=== PATIENT | male | born 1975 | race Two or more races ===

== ENCOUNTER 2018-03-21 11:52 | Inpatient (IN) | payer OTHER ==
[2018-03-21] MEDS ORDERED: KETOROLAC TROMETHAMINE 30 MG/1 ML VIAL IVPUSH ONE (12:46)
[2018-03-21] MEDS ORDERED: SODIUM CHLORIDE 1,000 ML IV STA ×3 (12:50→14:30)
--- NOTE | 2018-03-21 12:50 | PDOC ---
History of Present Illness <Madison Hernandes Ck - Last Filed: 03/21/18 15:01> - General History Source: Patient, Spouse - History of Present Illness Timing/Duration: reports: constant, getting worse Quality: reports: severe Abdominal Pain Onset Location: reports: RUQ Pain Radiation: reports: no radiation <Aj Rivera - Last Filed: 03/21/18 16:14> - General Chief Complaint: Pain, Acute Stated Complaint: PAIN Time Seen by Provider: 03/21/18 12:32 Past History <Madison Hernandes Ck - Last Filed: 03/21/18 15:01> - Past Medical History COPD: No Dementia: No Disorders: No - Surgical History Cholecystectomy: No GI Surgery: No - Immunization History Immunization Up to Date: No - Suicide/Smoking/Psychosocial Hx Smoking History: Current every day smoker Have you smoked in the past 12 months: No Information on smoking cessation initiated: No Hx Alcohol Use: No Drug/Substance Use Hx: No <Aj Rivera - Last Filed: 03/21/18 16:14> - Past Medical History Allergies/Adverse Reactions: Allergies Allergy/AdvReac Type Severity Reaction Status Date / Time No Known Allergies Allergy Verified 03/21/18 11:57 Home Medications: Ambulatory Orders Oxycodone HCl/Acetaminophen [Percocet 5-325 mg Tablet] 1 tab PO Q4H 03/21/18 Review of Systems - Review of Systems Constitutional: No: Chills, Fever ABD/GI: No: Constipated, Diarrhea, Nausea, Vomiting : No: Dysuria, Flank Pain, Hematuria <Aj Rivera - Last Filed: 03/21/18 16:14> *Physical Exam - Vital Signs Last Vital Signs Temp Pulse Resp BP Pulse Ox 98.5 F 104 H 18 122/88 100 03/21/18 11:54 03/21/18 11:54 03/21/18 11:54 03/21/18 11:54 03/21/18 11:54 <Madison Hernandes Ck - Last Filed: 03/21/18 15:01> - Vital Signs Last Vital Signs Temp Pulse Resp BP Pulse Ox 98.5 F 104 H 18 122/88 100 03/21/18 11:54 03/21/18 11:54 03/21/18 11:54 03/21/18 11:54 03/21/18 11:54 - Physical Exam General Appearance: Yes: Appropriately Dressed, Mild Distress HEENT: positive: Normal Voice Neck: positive: Supple Respiratory/Chest: positive: Lungs Clear, Normal Breath Sounds. negative: Respiratory Distress Cardiovascular: positive: Regular Rate, S1, S2 Gastrointestinal/Abdominal: positive: Normal Bowel Sounds, Tender (w/ guarding to RUQ), Soft. negative: Distended, Rebound Musculoskeletal: negative: CVA Tenderness Integumentary: positive: Dry, Warm Neurologic: positive: Fully Oriented, Alert, Normal Mood/Affect <Aj Rivera - Last Filed: 03/21/18 16:14> Moderate Sedation - Procedure Monitoring Vital Signs: Procedure Monitoring Vital Signs Temperature 98.5 F 03/21/18 11:54 Pulse Rate 104 H 03/21/18 11:54 Respiratory Rate 18 03/21/18 11:54 Blood Pressure 122/88 03/21/18 11:54 O2 Sat by Pulse Oximetry (%) 100 03/21/18 11:54 <Madison Hernandes - Last Filed: 03/21/18 15:01> - Procedure Monitoring Vital Signs: Procedure Monitoring Vital Signs Temperature 98.5 F 03/21/18 11:54 Pulse Rate 104 H 03/21/18 11:54 Respiratory Rate 18 03/21/18 11:54 Blood Pressure 122/88 03/21/18 11:54 O2 Sat by Pulse Oximetry (%) 100 03/21/18 11:54 <Aj Rivera - Last Filed: 03/21/18 16:14> ED Treatment Course - LABORATORY CBC & Chemistry Diagram: 03/21/18 13:11 03/21/18 13:11 - ADDITIONAL ORDERS Additional order review: Laboratory Results 03/21/18 13:11 Sodium 135 L Potassium 4.0 Chloride 101 Carbon Dioxide 28 Anion Gap 6 L BUN 16 Creatinine 0.8 Creat Clearance w eGFR > 60 Random Glucose 99 Calcium 8.8 Total Bilirubin 6.3 H AST 46 H ALT 85 H Alkaline Phosphatase 152 H Total Protein 7.5 Albumin 3.8 Lipase 84 03/21/18 13:11 RBC 7.64 H MCV 61.5 L MCHC 31.2 L RDW 16.1 H MPV 8.7 Neutrophils % 74.1 Lymphocytes % 10.4 Monocytes % 13.2 H Eosinophils % 1.8 Basophils % 0.5 <GretaSamanthaMadisonzev Stover - Last Filed: 03/21/18 15:01> - LABORATORY CBC & Chemistry Diagram: 03/21/18 13:11 03/21/18 13:11 - RADIOLOGY Radiology Studies Ordered: Category Date Time Status ABDOMEN US -LIMITED [US] Stat Ultrasound 03/21/18 12:46 Ordered <Aj Rivera - Last Filed: 03/21/18 16:14> Medical Decision Making - Medical Decision Making The patient was seen and evaluated in conjunction with midlevel provider under my direct supervision, ancillary studies were reviewed. I agree with the plan as outlined by JOSY Rivera. HPI, workup/dispo as outlined. labs with leukocytosis. RUQ sono reviewed by me, GB wall thickening with multiple stones correlating with acute cholecystitis surgery cs placed, IV abx admit for acute shyam, abx and surg/medical management. 03/21/18 14:11 03/21/18 15:01 <Madison Hernandes Ck - Last Filed: 03/21/18 15:01> - Medical Decision Making 03/21/18 12:48 42-year-old male, no significant history here with severe RUQ pain 4 days. No nausea, vomiting, fever, chills, change in bowel movements, dysuria or hematuria. Went to see his primary doctor this am and states ultrasound was done revealing that he had multiple gallstones with possible infection per See exam Biliary colic, r/o acute shyam -pain control -IVF -labs -US 03/21/18 14:31 US c/w acute shyam. Bili of 6 with mildly elevated LFTs otherwise, Pt made NPO w/ IVF and antibiotics in progress. Per Dr. Michel, requesting Dr. Everette Rivero of surgery. Case discussed with Dr. Sutton and patient admitted 03/21/18 16:[address] Everette Rivero, agrees with 1 dose zosyn in ED and MRCP <Aj Rivera - Last Filed: 03/21/18 16:14> *DC/Admit/Observation/Transfer <Madison Hernandes - Last Filed: 03/21/18 15:01> - Discharge Dispostion Decision to Admit order: Yes <Aj Rivera - Last Filed: 03/21/18 16:14> Diagnosis at time of Disposition: Acute cholecystitis - Discharge Dispostion Condition at time of disposition: Fair
[2018-03-21] MEDS ORDERED: KETOROLAC TROMETHAMINE 30 MG/1 ML VIAL ONE (12:59)
[2018-03-21 13:32] LABS: BASO % 0.5 % (0-2.0); EOS % 1.8 % (0-4.5); HEMATOCRIT 46.9 % (35.4-49); HEMOGLOBIN 14.6 GM/dL (11.7-16.9); LYMPH % 10.4 % (8-40); MCHC 31.2 g/dl (32.0-35.9); MEAN CELL VOLUME 61.5 fl (80-96); MEAN PLT VOLUME 8.7 fl (7.5-11.1); MONO % 13.2 % (3.8-10.2); NEUT % 74.1 % (42.8-82.8); PLATELET COUNT 271 K/MM3 (134-434); RDW 16.1 % (11.9-15.9); WHITE BLOOD COUNT 15.8 K/mm3 (4.0-10.0)
[2018-03-21 13:40] LABS: MCH 19.2 pg (25.7-33.7); RBC 7.64 M/mm3 (4.00-5.60)
[2018-03-21 14:09] LABS: ALBUMIN 3.8 g/dl (3.4-5.0); ALK PHOS 152 U/L (45-117); ANION GAP 6 MMOL/L (8-16); BILIRUBIN,TOTAL 6.3 mg/dL (0.2-1); BLOOD UREA NITROGEN 16 mg/dL (7-18); CALCIUM 8.8 mg/dL (8.5-10.1); CHLORIDE 101 mmol/L (98-107); CO2 28 mmol/L (21-32); CREATININE 0.8 mg/dL (0.55-1.3); GLUCOSE,RANDOM 99 mg/dL (74-106); LIPASE 84 U/L (73-393); SGOT/AST 46 U/L (15-37); SGPT/ALT 85 U/L (13-61); SODIUM 135 mmol/L (136-145); TOT PROT 7.5 g/dl (6.4-8.2)
[2018-03-21] MEDS ORDERED: PIPERACILLIN/TAZOB 3.375 GM 3.375 GM in DEXTROSE 5%-WATER - 50 ML IVPB ONE (14:30)
[2018-03-21 14:34] LABS: URINE APPEARANCE CLEAR; URINE COLOR AMBER; URINE GLUCOSE (UA) NEGATIVE (NEGATIVE); URINE KETONE NEGATIVE (NEGATIVE); URINE PROTEIN 2+ (NEGATIVE)
[2018-03-21 14:35] LABS: URINE LEUK ESTERASE NEGATIVE (NEGATIVE); URINE NITRITE NEGATIVE (NEGATIVE); URINE UROBILINOGEN 4.0 E.U/dl mg/dL (0.2-1.0)
[2018-03-21 14:49] LABS: URINE MUCUS RARE
[2018-03-21] MEDS ORDERED: PIPERACILLIN/TAZOB 3.375 GM 3.375 GM/50 ML BAG IVPB ONE (14:50)
[2018-03-21 15:10] LABS: INR 1.34 (0.83-1.09); PROTHROMBIN TIME (PATIENT) 15.9 SEC (9.7-13.0)
[2018-03-21 17:16] LABS: ANISOCYTOSIS 1+
[2018-03-22] MEDS ORDERED: morphine SULFATE 4 MG/ML VIAL IVPUSH PRN ×2 (01:52→20:28)
[2018-03-22] MEDS ORDERED: ONDANSETRON 4 MG/2 ML VIAL IVPUSH PRN (01:52)
--- NOTE | 2018-03-22 01:55 | HP ---
Admitting History and Physical - Smoking History Smoking history: Current every day smoker Have you smoked in the past 12 months: No - Alcohol/Substance Use Hx Alcohol Use: No Home Medications - Allergies Allergies/Adverse Reactions: Allergies Allergy/AdvReac Type Severity Reaction Status Date / Time No Known Allergies Allergy Verified 03/21/18 11:57 - Home Medications Home Medications: Ambulatory Orders Oxycodone HCl/Acetaminophen [Percocet 5-325 mg Tablet] 1 tab PO Q4H 03/21/18 Physical Examination Vital Signs: Vital Signs Temperature 98.7 F 03/21/18 21:30 Pulse Rate 93 H 03/21/18 21:30 Respiratory Rate 20 03/21/18 21:30 Blood Pressure 144/69 03/21/18 21:30 O2 Sat by Pulse Oximetry (%) 97 03/21/18 20:34 Labs: CBC, BMP 03/21/18 13:11 03/21/18 13:11
[2018-03-22] MEDS ORDERED: DEXTROSE 5%-0.45% SALINE 1,000 ML IV SCH (02:00)
[2018-03-22 04:36] VITALS: BMI 27.9
[2018-03-22 07:48] LABS: BASO % 0.4 % (0-2.0); EOS % 2.3 % (0-4.5); HEMATOCRIT 40.7 % (35.4-49); HEMOGLOBIN 13.4 GM/dL (11.7-16.9); LYMPH % 11.2 % (8-40); MCH 20.3 pg (25.7-33.7); MEAN CELL VOLUME 61.6 fl (80-96); MEAN PLT VOLUME 8.9 fl (7.5-11.1); MONO % 12.1 % (3.8-10.2); PLATELET COUNT 255 K/MM3 (134-434); RBC 6.61 M/mm3 (4.00-5.60); WHITE BLOOD COUNT 12.4 K/mm3 (4.0-10.0)
[2018-03-22 08:42] LABS: ALBUMIN 3.2 g/dl (3.4-5.0); ALK PHOS 166 U/L (45-117); ANION GAP 7 MMOL/L (8-16); BILIRUBIN,DIRECT 2.3 mg/dL (0.0-0.2); BILIRUBIN,TOTAL 4.5 mg/dL (0.2-1); BLOOD UREA NITROGEN 19 mg/dL (7-18); CALCIUM 8.3 mg/dL (8.5-10.1); CHLORIDE 103 mmol/L (98-107); CO2 28 mmol/L (21-32); CREATININE 0.8 mg/dL (0.55-1.3); GLUCOSE,RANDOM 100 mg/dL (74-106); POTASSIUM 4.2 mmol/L (3.5-5.1); SGOT/AST 49 U/L (15-37); SGPT/ALT 74 U/L (13-61); SODIUM 138 mmol/L (136-145); TOT PROT 6.4 g/dl (6.4-8.2)
[2018-03-22] MEDS: HEPARIN NA (PORCINE) 5,000 UNITS/ML 1ML VIAL SQ SCH ×3 (09:29→22:53)
--- NOTE | 2018-03-22 14:42 | EKG ---
Test Reason : Blood Pressure : / mmHG Vent. Rate : 087 BPM Atrial Rate : 087 BPM P-R Int : 140 ms QRS Dur : 110 ms QT Int : 350 ms P-R-T Axes : 043 046 034 degrees QTc Int : 421 ms NORMAL SINUS RHYTHM NORMAL ECG NO PREVIOUS ECGS AVAILABLE Confirmed by LEE GEORGE, HIPOLITO ([id number]) on 03/22/2018 2:41:58 PM Referred By: Confirmed By:HIPOLITO HOWARD MD
[2018-03-22] MEDS ORDERED: LACTATED RINGERS SOLUTION 1,000 ML IV SCH (15:45)
[2018-03-22] MEDS ORDERED: PROPOFOL 20 ML ONE (15:52)
[2018-03-22] MEDS ORDERED: ROCURONIUM BROMIDE 50 MG/5 ML VIAL ONE (15:52)
[2018-03-22] MEDS ORDERED: SUCCINYLCHOLINE CHLORIDE 200 MG/10 ML VIAL ONE (15:52)
[2018-03-22] MEDS ORDERED: BUPIVACAINE HCL/PF 0.5% (5MG/ML) 10 ML VIAL ONE (16:02)
--- NOTE | 2018-03-22 16:48 | CONSULT ---
Consult Consult Specialty:: Surgery Reason for Consultation:: acute cholecystitis - History of Present Illness Chief Complaint: abdominal pain History of Present Illness: 42 y.o. male presented to PMD with 4 days history of RUQ abdominal pain radiating to the back. Denies history of similar pain in the past. Patient was sent to ED for evaluation where US showed GB with multiple stones and thickened holman, and abnormal LFT'S. MRCP showed no CBD dilation and filling defect. - History Source History Provided By: Patient, Family Member - Past Medical History Additional Medical History: negative - Past Surgical History Past Surgical History: Yes: None - Alcohol/Substance Use Hx Alcohol Use: No - Smoking History Smoking history: Current every day smoker Have you smoked in the past 12 months: No Home Medications - Allergies Allergies/Adverse Reactions: Allergies Allergy/AdvReac Type Severity Reaction Status Date / Time No Known Allergies Allergy Verified 03/21/18 11:57 - Home Medications Home Medications: Ambulatory Orders Oxycodone HCl/Acetaminophen [Percocet 5-325 mg Tablet] 1 tab PO Q4H 03/21/18 Review of Systems - Review of Systems Constitutional: reports: Other (abominal pain) Neck: reports: No Symptoms Cardiovascular: reports: No Symptoms Respiratory: reports: No Symptoms Gastrointestinal: reports: Abdominal Pain Musculoskeletal: reports: No Symptoms Physical Exam Vital Signs: Vital Signs Temperature 98.3 F 03/22/18 14:38 Pulse Rate 85 03/22/18 14:38 Respiratory Rate 18 03/22/18 14:38 Blood Pressure 125/77 03/22/18 14:38 O2 Sat by Pulse Oximetry (%) 97 03/21/18 20:34 Constitutional: Yes: Well Nourished Eyes: Yes: Conjunctiva Clear HENT: Yes: Normocephalic Neck: Yes: Supple Cardiovascular: Yes: Regular Rate and Rhythm Respiratory: Yes: CTA Bilaterally Gastrointestinal: Yes: Soft, Tenderness (RUQ) ...Rectal Exam: Yes: Deferred Extremities: Yes: WNL Integumentary: Yes: WNL Neurological: Yes: Alert, Oriented Psychiatric: Yes: Alert, Oriented Labs: CBC, BMP 03/22/18 07:00 03/22/18 07:00 Imaging - Results Ultrasound: Report Reviewed, Image Reviewed MRI: Report Reviewed, Image Reviewed Problem List - Problems (1) Acute cholecystitis Assessment/Plan: Laparoscopic cholecystectomy, urgent IVF, IV antibiotics Code(s): K81.0 - ACUTE CHOLECYSTITIS
[2018-03-22] MEDS ORDERED: AMPICILLIN NA/SULBACTAM NA 1.5 GM VIAL ONE (16:55)
[2018-03-22] MEDS ORDERED: AMPICILLIN NA/SULBACTAM NA 1.5 GM VIAL IVPB ONE (16:56)
[2018-03-22] MEDS ORDERED: DEXAMETHASONE SOD PHOSPHATE 4 MG/1 ML VIAL ONE (17:03)
[2018-03-22] MEDS ORDERED: BUPIVACAINE HCL/PF 0.5% (5MG/ML) 10 ML VIAL IJ ONE (18:34)
[2018-03-22] MEDS ORDERED: DESFLURANE GAS 240 ML BOTTLE IH ONE (19:05)
--- NOTE | 2018-03-22 20:14 | OP ---
Operative Note - Note: Operative Date: 03/22/18 Pre-Operative Diagnosis: acute cholecystitis Operation: laparoscopic cholecystectomy Findings: edematous GB with hard thickened holman and multiple stones Post-Operative Diagnosis: Same as Pre-op Surgeon: Everette Rivero [employer] Rep[employer] Technician: Marilee Alaniz Anesthesia: General Estimated Blood Loss (mls): 300 Operative Report Dictated: Yes
[2018-03-22] MEDS ORDERED: METOCLOPRAMIDE HCL INJECTION 10 MG/2 ML VIAL IVPUSH PRN (20:15)
[2018-03-22] MEDS ORDERED: oxyCODONE HCL 5 MG TABLET PO PRN ×2 (20:18)
[2018-03-22] MEDS ORDERED: ACETAMINOPHEN 325 MG TABLET (FP) PO PRN (20:19)
--- NOTE | 2018-03-22 20:22 | SURG ---
Surgery Compressor House Operator Note Compressor House Operator: Marilee Alaniz PA-C Date of Service: 03/22/18 Diagnosis: acute cholecystitis Procedure: laparoscopic cholecystectomy I was present for the entirety of the operative procedure. For further detail, please refer to operative report. Visit type - Case Type Case Type: ED Admission - Emergency Emergency Visit: Yes ED Registration Date: 03/21/18 Care time: The patient presented to the Emergency Department on the above date and was hospitalized for further evaluation of their emergent condition. - New patient This patient is new to me today: Yes Date on this admission: 03/22/18
[2018-03-22] MEDS: LACTATED RINGERS SOLUTION 1,000 ML IV SCH (21:30)
[2018-03-23] MEDS: LACTATED RINGERS SOLUTION 1,000 ML IV SCH ×3 (06:14→22:59)
[2018-03-23 07:07] LABS: BASO % 0.1 % (0-2.0); EOS % 0.1 % (0-4.5); HEMATOCRIT 36.5 % (35.4-49); LYMPH % 4.7 % (8-40); MCH 20.1 pg (25.7-33.7); MCHC 32.9 g/dl (32.0-35.9); MEAN PLT VOLUME 8.8 fl (7.5-11.1); MONO % 9.5 % (3.8-10.2); NEUT % 85.6 % (42.8-82.8); PLATELET COUNT 313 K/MM3 (134-434); RBC 5.98 M/mm3 (4.00-5.60); RDW 15.7 % (11.9-15.9); WHITE BLOOD COUNT 12.6 K/mm3 (4.0-10.0)
[2018-03-23 07:36] LABS: ALBUMIN 2.8 g/dl (3.4-5.0); ALK PHOS 150 U/L (45-117); ANION GAP 9 MMOL/L (8-16); BILIRUBIN,TOTAL 2.1 mg/dL (0.2-1); BLOOD UREA NITROGEN 20 mg/dL (7-18); CALCIUM 7.9 mg/dL (8.5-10.1); CHLORIDE 104 mmol/L (98-107); CO2 26 mmol/L (21-32); CREATININE 0.8 mg/dL (0.55-1.3); GLUCOSE,RANDOM 127 mg/dL (74-106); POTASSIUM 4.3 mmol/L (3.5-5.1); SGOT/AST 76 U/L (15-37); SGPT/ALT 104 U/L (13-61); SODIUM 138 mmol/L (136-145); TOT PROT 5.8 g/dl (6.4-8.2)
--- NOTE | 2018-03-23 08:12 | PN ---
Progress Note (short form) - Note Progress Note: Anesthesia post op Pt seen and examined S:Alert and awake O: Vital Signs Temperature 98.5 F 03/23/18 06:13 Pulse Rate 82 03/23/18 06:13 Respiratory Rate 18 03/23/18 06:13 Blood Pressure 113/78 03/23/18 06:13 O2 Sat by Pulse Oximetry (%) 99 03/22/18 21:15 CBC, BMP 03/23/18 06:00 03/23/18 06:00 A/P: Current Active Problems Acute cholecystitis (Acute) s/p lap Yajaira Doing well post op Continue current care Nicholas Castle M.D.
[2018-03-23] MEDS: HEPARIN NA (PORCINE) 5,000 UNITS/ML 1ML VIAL SQ SCH ×2 (09:08→21:28)
--- NOTE | 2018-03-23 09:12 | OP ---
DATE OF OPERATION: 03/22/2018 PROCEDURE PERFORMED: Laparoscopic cholecystectomy. PREOPERATIVE DIAGNOSIS: Acute cholecystitis. POSTOPERATIVE DIAGNOSIS: Acute cholecystitis. SURGEON: Everette Rivero M.D. POSTAGE MACHINE OPERATOR: JOSY Dunn ANESTHESIA: General endotracheal. INDICATIONS: This is a 42-year-old gentleman who presented with a 4-day history of right upper quadrant pain radiating to the back. The patient was sent by PMD to the emergency department, where an ultrasound showed a distended gallbladder with thickened holman and multiple stones. Total bilirubin was 6, with mildly elevated enzymes. MRCP revealed a very inflamed gallbladder and a normal-sized common duct with no filling defects. So the patient was advised cholecystectomy and consent was obtained after discussing the risks, benefits and alternatives to the procedure. DESCRIPTION OF PROCEDURE: The patient was brought to the operating room and placed in the supine position. General endotracheal anesthesia was administered. The abdomen was prepped and draped in the usual sterile fashion. Using 0.5% Marcaine, local anesthesia was administered to the proposed incision site. The peritoneal cavity was entered using the Optiview technique via a 5-mm umbilical incision using a 5-mm 0-degree scope inserted in the 5-mm optical port. Pneumoperitoneum was established. The patient was placed in the reverse-Trendelenburg [id number] position. An 11-mm port was inserted at the subxiphoid region and two 5-mm ports were inserted in the right subcostal region. The gallbladder was noted to be severely distended and edematous, with a very thickened wall. The gallbladder was decompressed using the laparoscopic aspirating needle. The fundus was grasped and retracted superiorly. At the area of the triangle of Calot, there was severe inflammatory edema with inflammatory adhesions of the omentum to the infundibulum and in the area of the triangle. This was carefully dissected bluntly, initially using the peanut dissector and later on the hook dissector. Some persistent bleeding was noted at the area of the lymph node of Calot, which was controlled with the LigaSure self-sealing device. Due to the severe inflammatory process, a dome-down approach was done by dissecting the proximal gallbladder bed using the hook dissector to separate the proximal gallbladder wall from the liver bed. Careful dissection of the area was done until a window was made to establish the critical view of safety. Further dissection using the vessel-sealing device eventually revealed the cystic duct, which was rather short and edematous. Due to the state of the cystic duct, the cystic duct was transected using the Endo MARYAN 32.5-mm stapling device. The gallbladder was then resected from its bed in antegrade fashion using the hook dissector connected to monopolar cautery. During the process, the gallbladder wall was entered and multiple stones were noted to spill into the peritoneal cavity. This was carefully suctioned using the large suction/irrigation device. The gallbladder was placed in an endobag and extracted via the subxiphoid incision, which was lengthened to about 4 cm to accommodate the large gallbladder and multiple large stones. The gallbladder bed was inspected and was noted to have some oozing. A Surgicel was deployed after hemostasis with the hook dissector connected to monopolar cautery. A round No. 15 drain was deployed into Erazo pouch, with the end abutting the gallbladder bed. This was exited via the lateral-most port site. This was then connected to bulb suction. The gallbladder bed, Erazo pouch, as well as the right hepatic gutter was copiously irrigated with sterile normal saline until the return was clear. After the operative site was noted to be free of active bleeding, the pneumoperitoneum was evacuated and the ports were removed. The subxiphoid wound was closed with continuous Vicryl 0 suture for the fascia and valerie fro the skin. The rest of the port sites were also closed with skin valerie and covered with a sterile dressing. The patient was successfully extubated and transferred to the postanesthesia care unit in satisfactory condition. Estimated blood loss was about 300 mL. WOUND CLASS: Contaminated. The patient received Unasyn 1 g prior to the start of the procedure. The patient was also already on broad-spectrum antibiotics since admission. Deangelo [id number]
--- NOTE | 2018-03-23 09:24 | PN ---
Progress Note (short form) - Note Progress Note: Surgery POD#1 laparoscopic cystectomy patient seen and examined at bedside with no complaints. Patient states pain is controlled and improving from his pre-op symptoms. He has been oob and voiding without limitation. He is tolerating his clear diet and denies any CP, SOB, N/V Fever or chills. Vital Signs Temp 98.5 F 03/23/18 06:13 Pulse 82 03/23/18 06:13 Resp 18 03/23/18 06:13 BP 113/78 03/23/18 06:13 Pulse Ox 99 03/22/18 21:15 Intake & Output 03/22/18 03/22/18 03/23/18 11:59 23:59 11:59 Intake Total 200 2950 1290 Output Total 2090 525 Balance 200 860 765 Intake: IV 0 1350 1000 D5-1/2Ns - 1,000 ml @ 75 0 mls/hr IV ASDIR HERB Rx#: [id number] Lactated Ringers Solution 1000 1,000 ml @ 125 mls/hr IV ASDIR HERB Rx#: [id number] IVPB 200 100 50 Oral 240 Other 1500 Output: Drainage 90 25 Right Lower Abdomen 25 Urine 200 500 Void 500 Estimated Blood Loss 300 Other 1500 Other: Voiding Method Toilet Urinal Bowel Movement No CBC, BMP 03/23/18 06:00 03/23/18 06:00 PE: A&Ox3, NAD Unlabored resp on 2L NC Abd: soft, ND with diffuse TTP throughout appropriate to status, dressings C/D/ I with NINFA drain at RLQ securely in place with 25cc of ss drainage overnight, no evidence of bile in drain. no tracking erythema. B/L LE compartments soft, NT with +2 DP pulses. Problem List - Problems (1) Acute cholecystitis Assessment/Plan: POD#1 Lap cholecystectomy doing well, total bili trending down. 1) Advance to regular diet 2) Continue IV abx 3) DVT prophylaxis with SQ heparin and scds 4) OOB as tolerated and up to chair for meals 5) Surgery to follow Evaluation and plan discussed with Dr Rivero. Code(s): K81.0 - ACUTE CHOLECYSTITIS
[2018-03-23] MEDS ORDERED: ONDANSETRON 4 MG/2 ML VIAL IVPUSH ONE (16:45)
--- NOTE | 2018-03-23 23:05 | PN ---
Progress Note, Physician - Current Medication List Current Medications: Active Medications Acetaminophen (Tylenol -) 650 mg PO Q4H PRN PRN Reason: FEVER Heparin Sodium (Porcine) (Heparin -) 5,000 unit SQ BID [facility] Last Admin: 03/23/18 21:28 Dose: 5,000 unit Metronidazole (Flagyl 500mg Premixed Ivpb -) 500 mg in 100 mls @ 100 mls/hr IVPB Q8H-IV [facility] Last Admin: 03/23/18 17:20 Dose: 100 mls/hr Levofloxacin (Levaquin 500 Mg Premixed Ivpb -) 500 mg in 100 mls @ 100 mls/hr IVPB DAILY [facility]; Protocol Last Admin: 03/23/18 10:22 Dose: 100 mls/hr Lactated Ringer's (Lactated Ringers Solution) 1,000 mls @ 125 mls/hr IV ASDIR HERB Last Admin: 03/23/18 22:59 Dose: Not Given Metoclopramide HCl (Reglan Injection -) 10 mg IVPUSH Q6H PRN PRN Reason: NAUSEA AND/OR VOMITING Last Admin: 03/23/18 13:41 Dose: 10 mg Morphine Sulfate (Morphine Sulfate) 3 mg IVPUSH Q6H PRN PRN Reason: PAIN LEVEL 7 - 10 Oxycodone HCl (Roxicodone -) 5 mg PO Q4H PRN PRN Reason: PAIN LEVEL 1-3 Oxycodone HCl (Roxicodone -) 10 mg PO Q4H PRN PRN Reason: PAIN LEVEL 4-6 - Objective Vital Signs: Vital Signs Temperature 98.3 F 03/23/18 22:17 Pulse Rate 98 H 03/23/18 22:17 Respiratory Rate 18 03/23/18 22:17 Blood Pressure 127/80 03/23/18 22:17 O2 Sat by Pulse Oximetry (%) 97 03/23/18 21:00 Labs: CBC, BMP 03/23/18 06:00 03/23/18 06:00 INR, PTT INR 1.34 (0.83-1.09) H 03/21/18 14:40
[2018-03-24] MEDS: LACTATED RINGERS SOLUTION 1,000 ML IV SCH ×2 (00:09→11:01)
[2018-03-24 07:54] LABS: BASO % 0.5 % (0-2.0); EOS % 0.9 % (0-4.5); HEMOGLOBIN 11.7 GM/dL (11.7-16.9); LYMPH % 12.4 % (8-40); MCHC 30.7 g/dl (32.0-35.9); MEAN CELL VOLUME 62.4 fl (80-96); MEAN PLT VOLUME 8.6 fl (7.5-11.1); MONO % 11.9 % (3.8-10.2); NEUT % 74.3 % (42.8-82.8); PLATELET COUNT 290 K/MM3 (134-434); RBC 6.09 M/mm3 (4.00-5.60); RDW 15.4 % (11.9-15.9); WHITE BLOOD COUNT 10.9 K/mm3 (4.0-10.0)
[2018-03-24 08:23] LABS: ALBUMIN 2.6 g/dl (3.4-5.0); ALK PHOS 130 U/L (45-117); ANION GAP 7 MMOL/L (8-16); BILIRUBIN,DIRECT 0.6 mg/dL (0.0-0.2); BILIRUBIN,TOTAL 1.3 mg/dL (0.2-1); BLOOD UREA NITROGEN 18 mg/dL (7-18); CALCIUM 7.4 mg/dL (8.5-10.1); CHLORIDE 102 mmol/L (98-107); CO2 30 mmol/L (21-32); CREATININE 0.8 mg/dL (0.55-1.3); GLUCOSE,RANDOM 95 mg/dL (74-106); POTASSIUM 4.5 mmol/L (3.5-5.1); SGOT/AST 28 U/L (15-37); SGPT/ALT 69 U/L (13-61); SODIUM 139 mmol/L (136-145); TOT PROT 5.5 g/dl (6.4-8.2)
[2018-03-24 08:30] LABS: MCH 19.2 pg (25.7-33.7)
--- NOTE | 2018-03-24 09:12 | PN ---
Progress Note (short form) - Note Progress Note: POD 2, s/p laparoscopic cholecystectomy Pt seen and examined on AM rounds. Reports some pain though improving. Reports nausea and vomiting yesterday when attempting to eat a sandwich. Has been oob, still feels weak. Voiding in urinal, remains dark in color. Denies cp/sob, diarrhea, calf pain/edema. Vital Signs Temp 98.9 F 03/24/18 14:02 Pulse 94 H 03/24/18 14:02 Resp 18 03/24/18 14:02 BP 119/76 03/24/18 14:02 Pulse Ox 92 L 03/24/18 09:00 Intake & Output 03/23/18 03/24/18 03/24/18 23:59 11:59 23:59 Intake Total 1425 1500 740 Output Total 690 505 Balance 735 995 740 Intake: IV 1125 1400 Lactated Ringers Solution 1125 1400 1,000 ml @ 125 mls/hr IV ASDIR HERB Rx#: [id number] IVPB 300 100 Oral 740 Output: Drainage 90 5 Right Lower Abdomen 90 5 Urine 600 500 Void 600 500 Other: Voiding Method Urinal Urinal # Unmeasured Voids Void 1 1 CBC, BMP 03/24/18 06:30 03/24/18 06:30 Gen: awake, alert, nad, sitting in bed Resp: cta b/l CV: rrr, s1s2 Abdomen, soft, minimally distended, tender near incision site, dressing c/d/i, NINFA in place with 1cc in reservoir (tubing stripped). Hypoactive bowel sounds. A/P: 42 y/o M w/ no significant PMHx now admitted on 03/21 after presenting with RUQ abdominal pain radiating to the back, found to have acute cholecystitis, now POD 2 s/p laparoscopic cholecystectomy NINFA output 5ml overnight serosanguinous drainage Afebrile, tachy to high 90s/low 100s. Labs improving, hyperbilirubinemia resolving. Continue abx Pain control as ordered Keep Ninfa in place at this time, monitor I&Os Regular diet Zofran prn Possible d/c tomorrow pending attending ethan above d/w attending Dr Rivero
[2018-03-24] MEDS: HEPARIN NA (PORCINE) 5,000 UNITS/ML 1ML VIAL SQ SCH ×2 (09:26→21:02)
--- NOTE | 2018-03-24 12:26 | PN ---
Progress Note, Physician Chief Complaint: s/p laparoscopic cholecystectomy History of Present Illness: Tolerated diet Post-op pain minimal - Current Medication List Current Medications: Active Medications Acetaminophen (Tylenol -) 650 mg PO Q4H PRN PRN Reason: FEVER Heparin Sodium (Porcine) (Heparin -) 5,000 unit SQ BID [facility] Last Admin: 03/24/18 09:26 Dose: 5,000 unit Levofloxacin (Levaquin -) 500 mg PO DAILY [facility] Metoclopramide HCl (Reglan Injection -) 10 mg IVPUSH Q6H PRN PRN Reason: NAUSEA AND/OR VOMITING Last Admin: 03/23/18 13:41 Dose: 10 mg Metronidazole (Flagyl -) 500 mg PO TID [facility] Morphine Sulfate (Morphine Sulfate) 3 mg IVPUSH Q6H PRN PRN Reason: PAIN LEVEL 7 - 10 Oxycodone HCl (Roxicodone -) 5 mg PO Q4H PRN PRN Reason: PAIN LEVEL 1-3 Oxycodone HCl (Roxicodone -) 10 mg PO Q4H PRN PRN Reason: PAIN LEVEL 4-6 - Objective Vital Signs: Vital Signs Temperature 98.3 F 03/23/18 22:17 Pulse Rate 99 H 03/24/18 10:00 Respiratory Rate 20 03/24/18 10:00 Blood Pressure 132/89 03/24/18 10:00 O2 Sat by Pulse Oximetry (%) 92 L 03/24/18 09:00 Gastrointestinal: Yes: Soft, Tenderness (incisional minimal), Other (NINFA drainage serosanguinous) Wound/Incision: Yes: Clean/Dry Labs: CBC, BMP 03/24/18 06:30 03/24/18 06:30 INR, PTT INR 1.34 (0.83-1.09) H 03/21/18 14:40 Problem List - Problems (1) Acute cholecystitis Assessment/Plan: Doing well, resolving hyperbilirubinemia D/C IVF Switch to p.o. antibiotics possible NINFA removal in am D/C planning in am Code(s): K81.0 - ACUTE CHOLECYSTITIS
[2018-03-24] MEDS: metroNIDAZOLE 250 MG TABLET PO SCH ×2 (13:20→21:02)
--- NOTE | 2018-03-24 14:40 | PATH ---
Surgical Pathology Report Patient Name: MIGEL HENRY Med. Rec. #: [id number] /Age/Gender: 1975 (Age: 42) / M Account: [id number] Location: [facility] MED/SURG Taken: 03/22/2018 Received: 03/23/2018 Reported: 03/24/2018 Physicians: Deangelo Mario M.D. Specimen(s) Received GALLBLADDER Clinical History Acute cholecystitis Final Diagnosis GALLBLADDER, CHOLECYSTECTOMY ACUTE CHOLECYSTITIS WITH HEMORRHAGE, NECROSIS AND EPITHELIAL DENUDATION. CHOLELITHIASIS. ONE REACTIVE LYMPH NODE. Electronically Signed Tejas Gloria M.D. Gross Description Received in formalin, labeled "gallbladder," is a 10.0 x 4.0 x 3.3 cm. gallbladder with a 0.2 cm. in length portion of cystic duct attached. There is a 1.0 cm in greatest dimension periductal lymph node present. The outer surface is leal brown with multifocal defects and varies from smooth to shaggy. The lumen contains red blood as well as a 2.0 cm in greatest dimension yellow-green, ovoid cholelith. The mucosa is hyperemic and eroded. The wall of the gallbladder measures up to 1.0 cm. in thickness. [employer] sections are submitted in 2 cassettes as follows: 1-cystic duct margin and one bisected lymph node; 2-unit support representative mucosa. /03/23/201803/23/2018
--- NOTE | 2018-03-24 22:22 | PN ---
Progress Note, Physician History of Present Illness: NINFA tube still draining - Current Medication List Current Medications: Active Medications Acetaminophen (Tylenol -) 650 mg PO Q4H PRN PRN Reason: FEVER Heparin Sodium (Porcine) (Heparin -) 5,000 unit SQ BID [facility] Last Admin: 03/24/18 21:02 Dose: 5,000 unit Levofloxacin (Levaquin -) 500 mg PO DAILY@0600 [facility] Metoclopramide HCl (Reglan Injection -) 10 mg IVPUSH Q6H PRN PRN Reason: NAUSEA AND/OR VOMITING Last Admin: 03/23/18 13:41 Dose: 10 mg Metronidazole (Flagyl -) 500 mg PO TID [facility] Last Admin: 03/24/18 21:02 Dose: 500 mg Morphine Sulfate (Morphine Sulfate) 3 mg IVPUSH Q6H PRN PRN Reason: PAIN LEVEL 7 - 10 Oxycodone HCl (Roxicodone -) 5 mg PO Q4H PRN PRN Reason: PAIN LEVEL 1-3 Oxycodone HCl (Roxicodone -) 10 mg PO Q4H PRN PRN Reason: PAIN LEVEL 4-6 - Objective Vital Signs: Vital Signs Temperature 98.0 F 03/24/18 17:35 Pulse Rate 81 03/24/18 17:35 Respiratory Rate 18 03/24/18 17:35 Blood Pressure 121/84 03/24/18 17:35 O2 Sat by Pulse Oximetry (%) 92 L 03/24/18 09:00 Neck: Yes: WNL, Supple Cardiovascular: Yes: WNL, Regular Rate and Rhythm Respiratory: Yes: WNL, Regular, CTA Bilaterally Gastrointestinal: Yes: Other ((+) NINFA tube RUQ w/ serosangrinous drainage (+) incisional tendderness on palpation) Labs: CBC, BMP 03/24/18 06:30 03/24/18 06:30 INR, PTT INR 1.34 (0.83-1.09) H 03/21/18 14:40 Problem List - Problems (1) Acute cholecystitis Assessment/Plan: S/P lap choley NINFA tube still draining and to be removed as per surgery Check labs in am Cont po antibxs Possible dc planning for am Code(s): K81.0 - ACUTE CHOLECYSTITIS
[2018-03-25] MEDS: metroNIDAZOLE 250 MG TABLET PO SCH ×3 (05:40→21:06)
[2018-03-25 07:38] LABS: BASO % 0.6 % (0-2.0); EOS % 1.4 % (0-4.5); HEMATOCRIT 42.5 % (35.4-49); LYMPH % 15.7 % (8-40); MCHC 30.6 g/dl (32.0-35.9); MEAN PLT VOLUME 8.8 fl (7.5-11.1); MONO % 10.4 % (3.8-10.2); NEUT % 71.9 % (42.8-82.8); PLATELET COUNT 320 K/MM3 (134-434); RBC 6.86 M/mm3 (4.00-5.60); RDW 15.3 % (11.9-15.9); WHITE BLOOD COUNT 11.6 K/mm3 (4.0-10.0)
[2018-03-25 08:24] LABS: ALK PHOS 163 U/L (45-117); ANION GAP 9 MMOL/L (8-16); BILIRUBIN,TOTAL 1.1 mg/dL (0.2-1); BLOOD UREA NITROGEN 16 mg/dL (7-18); CALCIUM 8.8 mg/dL (8.5-10.1); CHLORIDE 99 mmol/L (98-107); CO2 28 mmol/L (21-32); CREATININE 0.8 mg/dL (0.55-1.3); GLUCOSE,RANDOM 104 mg/dL (74-106); POTASSIUM 4.4 mmol/L (3.5-5.1); SGOT/AST 28 U/L (15-37); SGPT/ALT 65 U/L (13-61); SODIUM 136 mmol/L (136-145); TOT PROT 6.5 g/dl (6.4-8.2)
[2018-03-25] MEDS: HEPARIN NA (PORCINE) 5,000 UNITS/ML 1ML VIAL SQ SCH ×2 (09:16→21:07)
[2018-03-25 10:54] LABS: ANISOCYTOSIS 1+; MACROCYTOSIS 0; PLATELET ESTIMATE NORMAL
--- NOTE | 2018-03-25 18:56 | PN ---
Progress Note, Physician History of Present Illness: DOING WELL - Current Medication List Current Medications: Active Medications Acetaminophen (Tylenol -) 650 mg PO Q4H PRN PRN Reason: FEVER Heparin Sodium (Porcine) (Heparin -) 5,000 unit SQ BID [facility] Last Admin: 03/25/18 09:16 Dose: 5,000 unit Levofloxacin (Levaquin -) 500 mg PO DAILY@0600 [facility] Last Admin: 03/25/18 05:40 Dose: 500 mg Metoclopramide HCl (Reglan Injection -) 10 mg IVPUSH Q6H PRN PRN Reason: NAUSEA AND/OR VOMITING Last Admin: 03/23/18 13:41 Dose: 10 mg Metronidazole (Flagyl -) 500 mg PO TID [facility] Last Admin: 03/25/18 13:51 Dose: 500 mg Morphine Sulfate (Morphine Sulfate) 3 mg IVPUSH Q6H PRN PRN Reason: PAIN LEVEL 7 - 10 Oxycodone HCl (Roxicodone -) 5 mg PO Q4H PRN PRN Reason: PAIN LEVEL 1-3 Oxycodone HCl (Roxicodone -) 10 mg PO Q4H PRN PRN Reason: PAIN LEVEL 4-6 - Objective Vital Signs: Vital Signs Temperature 98.3 F 03/25/18 16:15 Pulse Rate 82 03/25/18 16:15 Respiratory Rate 20 03/25/18 16:15 Blood Pressure 105/71 03/25/18 16:15 O2 Sat by Pulse Oximetry (%) 95 03/25/18 09:00 Constitutional: Yes: No Distress HENT: Yes: Atraumatic Neck: Yes: Supple Cardiovascular: Yes: Regular Rate and Rhythm Respiratory: Yes: CTA Bilaterally Gastrointestinal: Yes: Normal Bowel Sounds Extremities: Yes: WNL Edema: No Peripheral Pulses WNL: Yes Neurological: Yes: Alert, Oriented Labs: CBC, BMP 03/25/18 06:30 03/25/18 06:30 INR, PTT INR 1.34 (0.83-1.09) H 03/21/18 14:40 Problem List - Problems (1) Acute cholecystitis Assessment/Plan: s/p lap shyam NINFA in place surgery fu Code(s): K81.0 - ACUTE CHOLECYSTITIS
[2018-03-26] MEDS: metroNIDAZOLE 250 MG TABLET PO SCH ×3 (05:24→21:30)
[2018-03-26] MEDS: HEPARIN NA (PORCINE) 5,000 UNITS/ML 1ML VIAL SQ SCH ×2 (09:22→21:30)
[2018-03-26 09:34] LABS: BASO % 0.6 % (0-2.0); EOS % 1.4 % (0-4.5); HEMATOCRIT 41.8 % (35.4-49); HEMOGLOBIN 13.5 GM/dL (11.7-16.9); MCHC 32.4 g/dl (32.0-35.9); MEAN CELL VOLUME 61.5 fl (80-96); MONO % 6.6 % (3.8-10.2); NEUT % 78.4 % (42.8-82.8); PLATELET COUNT 400 K/MM3 (134-434); RBC 6.79 M/mm3 (4.00-5.60); RDW 15.2 % (11.9-15.9); WHITE BLOOD COUNT 11.7 K/mm3 (4.0-10.0)
[2018-03-26 09:37] LABS: MCH 19.9 pg (25.7-33.7)
[2018-03-26 10:28] LABS: ALBUMIN 3.2 g/dl (3.4-5.0); ALK PHOS 196 U/L (45-117); ANION GAP 9 MMOL/L (8-16); BILIRUBIN,DIRECT 0.5 mg/dL (0.0-0.2); BLOOD UREA NITROGEN 20 mg/dL (7-18); CALCIUM 8.6 mg/dL (8.5-10.1); CHLORIDE 97 mmol/L (98-107); CO2 29 mmol/L (21-32); CREATININE 0.9 mg/dL (0.55-1.3); GLUCOSE,RANDOM 151 mg/dL (74-106); POTASSIUM 4.2 mmol/L (3.5-5.1); SGOT/AST 49 U/L (15-37); SGPT/ALT 70 U/L (13-61); SODIUM 135 mmol/L (136-145); TOT PROT 6.6 g/dl (6.4-8.2)
[2018-03-26 11:29] LABS: ANISOCYTOSIS 2+; MACROCYTOSIS 0; PLATELET ESTIMATE NORMAL
--- NOTE | 2018-03-26 20:46 | PN ---
Progress Note, Physician History of Present Illness: NINFA tube still draining however pt having less pain - Current Medication List Current Medications: Active Medications Acetaminophen (Tylenol -) 650 mg PO Q4H PRN PRN Reason: FEVER Heparin Sodium (Porcine) (Heparin -) 5,000 unit SQ BID [facility] Last Admin: 03/26/18 09:22 Dose: 5,000 unit Levofloxacin (Levaquin -) 500 mg PO DAILY@0600 [facility] Last Admin: 03/26/18 05:24 Dose: 500 mg Metoclopramide HCl (Reglan Injection -) 10 mg IVPUSH Q6H PRN PRN Reason: NAUSEA AND/OR VOMITING Last Admin: 03/23/18 13:41 Dose: 10 mg Metronidazole (Flagyl -) 500 mg PO TID [facility] Last Admin: 03/26/18 14:41 Dose: 500 mg - Objective Vital Signs: Vital Signs Temperature 98.6 F 03/26/18 16:15 Pulse Rate 89 03/26/18 16:15 Respiratory Rate 20 03/26/18 16:15 Blood Pressure 110/76 03/26/18 16:15 O2 Sat by Pulse Oximetry (%) 95 03/25/18 09:00 Neck: Yes: WNL, Supple Cardiovascular: Yes: WNL, Regular Rate and Rhythm Respiratory: Yes: WNL, Regular, CTA Bilaterally Gastrointestinal: Yes: Other (Minimal tenderness on palpation RUQ w/ NINFA tube draining) Labs: CBC, BMP 03/26/18 08:30 03/26/18 08:30 INR, PTT INR 1.34 (0.83-1.09) H 03/21/18 14:40 Problem List - Problems (1) Acute cholecystitis Assessment/Plan: S/P lap choley NINFA tube still draining and to be removed as per surgery US abdomen pending Check labs in am Cont levaquin/flagyl Code(s): K81.0 - ACUTE CHOLECYSTITIS
[2018-03-27] MEDS: metroNIDAZOLE 250 MG TABLET PO SCH ×2 (05:33→13:26)
[2018-03-27 07:49] LABS: BASO % 0.6 % (0-2.0); EOS % 1.5 % (0-4.5); HEMATOCRIT 38.2 % (35.4-49); HEMOGLOBIN 12.4 GM/dL (11.7-16.9); LYMPH % 16.7 % (8-40); MCHC 32.4 g/dl (32.0-35.9); MEAN CELL VOLUME 60.9 fl (80-96); MEAN PLT VOLUME 8.3 fl (7.5-11.1); MONO % 9.8 % (3.8-10.2); NEUT % 71.4 % (42.8-82.8); PLATELET COUNT 352 K/MM3 (134-434); RBC 6.28 M/mm3 (4.00-5.60); WHITE BLOOD COUNT 12.1 K/mm3 (4.0-10.0)
[2018-03-27 07:55] LABS: MCH 19.7 pg (25.7-33.7)
[2018-03-27 08:33] LABS: ALBUMIN 2.9 g/dl (3.4-5.0); ALK PHOS 168 U/L (45-117); ANION GAP 8 MMOL/L (8-16); BILIRUBIN,DIRECT 0.4 mg/dL (0.0-0.2); BILIRUBIN,TOTAL 0.8 mg/dL (0.2-1); BLOOD UREA NITROGEN 21 mg/dL (7-18); CALCIUM 8.5 mg/dL (8.5-10.1); CHLORIDE 99 mmol/L (98-107); CO2 29 mmol/L (21-32); CREATININE 0.8 mg/dL (0.55-1.3); GLUCOSE,RANDOM 83 mg/dL (74-106); POTASSIUM 4.3 mmol/L (3.5-5.1); SGOT/AST 39 U/L (15-37); SGPT/ALT 65 U/L (13-61); SODIUM 136 mmol/L (136-145)
--- NOTE | 2018-03-27 09:25 | PN ---
Progress Note (short form) - Note Progress Note: 42yo M s/p Lap shyam POD #5, pt states that he is feeling well. Pt denies n/v, fever, chills. Pt tolerating PO and ambulating well. Last Vital Signs Temp Pulse Resp BP Pulse Ox 98.1 F 81 20 100/68 95 03/27/18 06:00 03/27/18 06:00 03/27/18 06:00 03/27/18 06:00 03/25/18 09:00 CBC, BMP 03/27/18 06:30 03/27/18 06:00 PE: Gen: A&O X3 Resp: breathing comfortably Abd: soft, nontender, nondistended, incisions are clean with no erythema or discharge. RUQ drain in place with brownish drainage. (drain removed at bedside ) Ext: no edema Problem List - Problems (1) Acute cholecystitis Assessment/Plan: Plan -pt appears to be improved, drain removed at bedside. -pt may be discharged from surgery standpoint, follow up with Dr. Rivero in office this Tuesday, discharge info in discharge plan Case discussed with Dr. Rivero who agrees with plan. Code(s): K81.0 - ACUTE CHOLECYSTITIS
[2018-03-27 09:51] LABS: ANISOCYTOSIS 2+; MACROCYTOSIS 0; PLATELET ESTIMATE NORMAL; TEAR DROP CELLS 1+
[2018-03-27] MEDS: HEPARIN NA (PORCINE) 5,000 UNITS/ML 1ML VIAL SQ SCH (10:09)
[2018-03-27 15:04] VITALS: BP 116/70; PULSE 94; TEMP 98.7
== END 2018-03-27 17:27 | disposition home or self-care (01) | DRG 263 ==
LOC: JER 11:52 → JERBED 14:28 → J8W 21:16
PROVIDERS: ADMIT Internal Medicine; ATTEND Internal Medicine
PROC: 0FT44ZZ Resection of Gallbladder, Percutaneous Endoscopic Approach (ICD-10-PCS; principal; 2018-03-22 15:00)
DX: K81.0 Acute cholecystitis (principal); F17.210 Nicotine dependence, cigarettes, uncomplicated
CPT/HCPCS: 36415; 74181-TC; 76705-TC; 80048; 80053; 80076; 81003; 81015; 83605; 83690; 85025; 85610; 86850; 86900; 86901; 87040; 88304-TC; 93005; 93010; 94760; 99283-25; J1644; J7030